=== PATIENT | male | born 1965 | race Caucasian/White ===

== ENCOUNTER 2017-08-01 10:23 | Emergency (ER) | payer MEDICAID ==
[~2017-08-01] VITALS: Ht 180.3 cm; Wt 87.0 kg
[2017-08-01 10:25] VITALS: BP 140/82
[2017-08-01] MEDS ORDERED: KETOROLAC 30 MG/1 ML IM ONE (11:00)
[2017-08-01] MEDS ORDERED: METHOCARBAMOL 750 MG TABLET PO ONE (11:00)
[2017-08-01] MEDS ORDERED: KETOROLAC 30 MG/1 ML ONE (11:34)
[2017-08-01] MEDS ORDERED: METHOCARBAMOL 750 MG TABLET ONE (11:34)
== END 2017-08-01 12:04 | disposition home or self-care (01) ==
LOC: ED 11:55
DX: S39.012A Strain of muscle, fascia and tendon of lower back, initial encounter (principal); M51.36 Other intervertebral disc degeneration, lumbar region; M75.32 Calcific tendinitis of left shoulder; F17.210 Nicotine dependence, cigarettes, uncomplicated; W17.89XA Other fall from one level to another, initial encounter; Y93.01 Activity, walking, marching and hiking; Y92.89 Other specified places as the place of occurrence of the external cause; Y99.8 Other external cause status
CPT/HCPCS: 72110; 73030; 96372; 99284; J1885

== ENCOUNTER 2017-08-10 21:21 | Emergency (ER) | payer MEDICAID ==
[~2017-08-10] VITALS: Ht 180.3 cm; Wt 88.9 kg
[2017-08-10 21:25] VITALS: BP 126/90
== END 2017-08-10 22:08 | disposition left against medical advice (07) ==
LOC: ED 22:00
DX: R52 Pain, unspecified (principal); Z53.21 Procedure and treatment not carried out due to patient leaving prior to being seen by health care provider

== ENCOUNTER 2019-07-18 12:36 | Emergency (ER) | payer MEDICAID ==
[~2019-07-18] VITALS: Ht 180.3 cm; Wt 86.2 kg
[2019-07-18 12:49] VITALS: BP 124/75
--- NOTE | 2019-07-18 13:11 | NUR ---
PT HERE FOR DENTAL PAIN PRESENT FOR A FEW DAYS. SITTING ON PATRICIA. BESSY.
== END 2019-07-18 13:31 | disposition home or self-care (01) ==
LOC: ED 13:20
DX: K08.89 Other specified disorders of teeth and supporting structures (principal)
CPT/HCPCS: 99283

== ENCOUNTER 2019-08-06 21:17 | Emergency (ER) | payer MEDICAID ==
[~2019-08-06] VITALS: Ht 180.3 cm; Wt 88.9 kg
[2019-08-06 21:37] VITALS: BP 129/80
[2019-08-06] MEDS ORDERED: KETOROLAC 30 MG/1 ML ONE (23:16)
[2019-08-06] MEDS ORDERED: LIDOCAINE-MPF 1%, 5ML ONE (23:25)
[2019-08-06] MEDS ORDERED: LIDOCAINE 1%, 10ML INFIL ONE (23:30)
[2019-08-06] MEDS ORDERED: KETOROLAC 30 MG/1 ML IM ONE (23:30)
== END 2019-08-07 01:05 | disposition home or self-care (01) ==
LOC: ED 08-07 00:48
DX: G89.11 Acute pain due to trauma (principal); M25.561 Pain in right knee; M70.41 Prepatellar bursitis, right knee; F17.210 Nicotine dependence, cigarettes, uncomplicated; Z76.0 Encounter for issue of repeat prescription; X50.1XXA Overexertion from prolonged static or awkward postures, initial encounter; Y93.89 Activity, other specified; Y92.009 Unspecified place in unspecified non-institutional (private) residence as the place of occurrence of the external cause; Y99.8 Other external cause status
CPT/HCPCS: 20610; 73564; 85810; 87070; 87205; 89050; 89060; 96372; 99284; J1885

== ENCOUNTER 2020-01-14 13:44 | Emergency (ER) | payer MEDICAID ==
[~2020-01-14] VITALS: Ht 180.3 cm; Wt 90.0 kg
[2020-01-14 15:10] LABS: MICROSCOPIC INDICATED
--- NOTE | 2020-01-14 15:32 | NUR ---
TILE DECORATOR: PT AMBULATORY WITH STEADY GAIT TO ROOM AT THIS TIME.
[2020-01-14 15:47] LABS: BASOPHILS # (AUTO) 0.03 x10^3/uL (0-0.1); BASOPHILS % (AUTO) 0 % (0-1); EOSINOPHILS # (AUTO) 0.24 x10^3/uL (0-0.4); EOSINOPHILS % (AUTO) 4 % (1-7); LYMPHOCYTES % (AUTO) 23 % (22-44); MD NO; MEAN CORPUSCULAR HEMOGLOBIN 29.2 pg (27.5-34.5); MEAN CORPUSCULAR HGB CONC 33.6 g/dL (33.2-36.2); MEAN CORPUSCULAR VOLUME 86.9 fL (81-97); MEAN PLATELET VOLUME 10.2 fL (7.4-10.4); MONOCYTES # (AUTO) 0.61 x10^3/uL (0.2-0.8); MONOCYTES % (AUTO) 9 % (2-9); NEUTROPHILS # (AUTO) 4.36 x10^3/uL (1.8-6.8); NEUTROPHILS % (AUTO) 64 % (42-75); PLATELET COUNT 160 x10^3/uL (130-400); RED BLOOD COUNT 5.19 x10^6/uL (4.38-5.82)
[2020-01-14 15:59] LABS: ALBUMIN 4.4 g/dL (3.4-5.0); ANION GAP 5 mmol/L (5-15); CHLORIDE 114 mmol/L (98-107)
[2020-01-14 16:00] LABS: CREATININE 0.96 mg/dL (0.7-1.3)
[2020-01-14 16:57] VITALS: BP 134/65
== END 2020-01-14 17:25 | disposition home or self-care (01) ==
LOC: ED 17:00
DX: R31.29 Other microscopic hematuria (principal); R91.8 Other nonspecific abnormal finding of lung field
CPT/HCPCS: 36415; 74176; 80048; 81001; 82040; 85025; 99284

== ENCOUNTER 2020-01-21 20:15 | Emergency (ER) | payer MEDICAID ==
[~2020-01-21] VITALS: Ht 180.3 cm; Wt 88.0 kg
[2020-01-21 20:18] VITALS: BP 133/98
--- NOTE | 2020-01-21 21:42 | NUR ---
SAND PLANT ATTENDANT: PT TO ROOM FROM LOBBY
--- NOTE | 2020-01-21 21:56 | NUR ---
PT CARE TRANSFERRED TO ONCOMING RN: LONNIE NAVARRO
[2020-01-21 22:24] LABS: MICROSCOPIC AUTO
[2020-01-21 22:47] LABS: BASOPHILS # (AUTO) 0.03 x10^3/uL (0-0.1); BASOPHILS % (AUTO) 0 % (0-1); EOSINOPHILS # (AUTO) 0.17 x10^3/uL (0-0.4); EOSINOPHILS % (AUTO) 2 % (1-7); LYMPHOCYTES # (AUTO) 1.71 x10^3/uL (1-3.4); LYMPHOCYTES % (AUTO) 23 % (22-44); MD NO; MEAN CORPUSCULAR HEMOGLOBIN 29.1 pg (27.5-34.5); MEAN CORPUSCULAR HGB CONC 33.6 g/dL (33.2-36.2); MEAN CORPUSCULAR VOLUME 86.8 fL (81-97); MEAN PLATELET VOLUME 10.2 fL (7.4-10.4); MONOCYTES # (AUTO) 0.77 x10^3/uL (0.2-0.8); MONOCYTES % (AUTO) 10 % (2-9); NEUTROPHILS # (AUTO) 4.94 x10^3/uL (1.8-6.8); NEUTROPHILS % (AUTO) 65 % (42-75); PLATELET COUNT 155 x10^3/uL (130-400); RED BLOOD COUNT 5.28 x10^6/uL (4.38-5.82); RED CELL DISTRIBUTION WIDTH 14.1 % (9.4-14.8)
[2020-01-21 22:58] LABS: ALANINE AMINOTRANSFERASE 29 U/L (12-78); ALBUMIN 4.3 g/dL (3.4-5.0); ANION GAP 8 mmol/L (5-15); CALCIUM 9.2 mg/dL (8.5-10.1); CHLORIDE 110 mmol/L (98-107); CREATININE 0.95 mg/dL (0.7-1.3)
[2020-01-21 23:01] LABS: ALKALINE PHOSPHATASE 66 U/L (45-117); BILIRUBIN,TOTAL 0.9 mg/dL (0.2-1.0); TOTAL PROTEIN 7.5 g/dL (6.4-8.2)
== END 2020-01-22 00:07 | disposition home or self-care (01) ==
LOC: ED 22:17
DX: R31.9 Hematuria, unspecified (principal); R91.1 Solitary pulmonary nodule; M54.9 Dorsalgia, unspecified; G89.29 Other chronic pain
CPT/HCPCS: 36415; 80053; 81001; 85025; 87086; 99283

== ENCOUNTER 2020-07-04 20:18 | Emergency (ER) | payer MEDICAID ==
[~2020-07-04] VITALS: Ht 180.3 cm; Wt 90.4 kg
[2020-07-04 20:20] VITALS: BP 133/94
[2020-07-04] MEDS ORDERED: LIDOCAINE-MPF 1%, 5ML ONE (20:52)
[2020-07-04] MEDS ORDERED: LIDOCAINE-MPF 1%, 5ML INFIL ONE (21:00)
--- NOTE | 2020-07-04 21:27 | NUR ---
pt in bed with no signs or symptoms of acute distress noted respirations even and unlabored denies pain or discomfort at this time. pt alert and oriented x3, aware and agreeable with plan of care.
--- NOTE | 2020-07-04 21:36 | NUR ---
PRECEPTOR RN: CRITICAL CARE PARAMEDIC AT BEDSIDE FOR IRRIGATION
--- NOTE | 2020-07-04 22:00 | NUR ---
PROVIDER AT BEDSIDE FOR SUTURES.
[2020-07-04] MEDS ORDERED: NEOSPORIN OINT. PKT 1 PACKET ONE (22:10)
== END 2020-07-04 22:48 | disposition home or self-care (01) ==
LOC: ED 20:48
DX: S61.411A Laceration without foreign body of right hand, initial encounter (principal); F17.210 Nicotine dependence, cigarettes, uncomplicated; Z72.9 Problem related to lifestyle, unspecified; X58.XXXA Exposure to other specified factors, initial encounter; Y93.89 Activity, other specified; Y92.89 Other specified places as the place of occurrence of the external cause; Y99.8 Other external cause status
CPT/HCPCS: 12042; 99284; 99406